=== PATIENT | male | born 1980 | race African-American/Black ===

== ENCOUNTER 2019-05-23 03:31 | Observation (INO) ==
[2019-05-23 04:11] LABS: Albumin Level 3.9 gm/dl (3.4-5.0); BUN Creatinine Ratio 12.6 (10-20); Calcium 8.5 mg/dl (8.5-10.1); Creatinine Clr Calc Pharmacy 114.5 ml/min; Est GFR (African American) 105.3; Est GFR (Non-African American) 90.9; Potassium 3.2 mmol/L (3.5-5.1)
[2019-05-23 04:14] LABS: Albumin Globulin Ratio 0.8 (0.9-2); Bilirubin,Total 0.2 mg/dl (0.2-1); Globulin 4.6 gm/dl (2.5-4.0); Total Protein 8.5 gm/dl (6.4-8.2)
--- NOTE | 2019-05-23 05:00 | Emergency Department Note ---
History of Present Illness General Chief complaint: Alcohol Intoxication Stated complaint: alcohol overdose Time Seen by Provider: 05/23/19 03:39 History of Present Illness This is a 38-year-old male presenting to the emergency department for altered mental status presumably from alcohol intoxication. The patient was brought to the attention of police by multiple passerby's. Was having a difficult time walking in [facility]. Police felt the patient was unwell and EMS was contacted. Evidently the patient recently completed his masters degree and was celebrating with friends. We are unsure how much alcohol the patient had to drink tonight, but reportedly did have at least one fall to the ground striking the right side of his head. History is otherwise limited secondary to the patient's status. Home Medications Home Medications Medication Instructions Recorded Confirmed Type Unobtainable 05/23/19 05/23/19 History Allergies Allergy/AdvReac Type Severity Reaction Status Date / Time Unable to Assess Allergy Unverified 05/23/19 05:17 Past Med/Surg History Medical History No chronic diseases present No significant past surgical history Social History Feels Safe at Home: Yes Smoking Status: Unknown if ever smoked Review of Systems Unobtainable due to cognitive status Physical Exam Vital Signs Vital Signs - 24 hr 05/23/19 03:26 05/23/19 03:40 05/23/19 03:48 Temperature 36.5 C Temperature Source Axillary Sepsis Recent Fever Within 48 Hours No Sepsis New/Unexplained Change in Mental Status No Sepsis Action Taken by Nursing No Action Required Oxygen Flow Rate - Titration 2 Pulse Oximetry Post Tiitration 98 Pulse Rate 81 Respiratory Rate 12 Blood Pressure 121/85 Blood Pressure Mean 97 Pulse Oximetry 89 L 90 98 Oxygen Delivery Method Room Air Nasal Cannula Room Air Nasal Cannula Oxygen Flow Rate 0 2 VITALS: Vitals are noted on the nurse's note and reviewed by myself. Vital signs stable. GENERAL: Grossly intoxicated male who is unable to answer questions HEAD: Superficial abrasion/contusion to the right side forehead and eyebrow without significant laceration or bleeding. EARS: External ear normal. External auditory canals clear, tympanic membranes pearly gaines without erythema or effusion bilaterally. No hemotympanum EYES: Pupils equal round and reactive to light and accommodation. Conjunctivae without injection, sclerae without icterus. Extraocular movements intact. No hyphema NOSE: Patent, turbinates without inflammation or discharge. MOUTH: Mucous membranes moist. Tonsils are not enlarged. Pharynx without erythema, blood, or exudate. NECK: Supple without nuchal rigidity. HEART: Regular rate and rhythm without murmurs gallops or rubs. LUNGS: Clear to auscultation bilaterally without wheezes, rales or rhonchi. No retractions or accessory muscle use. ABDOMEN: Positive normal bowel sounds x 4. MUSCULOSKELETAL: No muscle atrophy, erythema, or edema noted. NEURO: Patient was not alert or oriented. GCS 6: E(1) V(2) M(3). Patient does smell of alcohol but will arouse to painful stimuli. He is maintaining his own airway. Medical Decision Making Differential Diagnosis Differential diagnosis: Etiologies such as alcohol intoxication, trauma, intercranial bleed, toxicological, infection, hypoglycemia, electrolyte abnormalities, cardiac sources, intracerebral event, neurologic, as well as others were entertained. Laboratory Data Result diagrams: 05/23/19 03:40 Lab Results 05/23/19 05/23/19 Range/Units 03:40 03:40 Sodium 138 (136-145) mmol/L Potassium 3.2 L (3.5-5.1) mmol/L Chloride 104 (98-107) mmol/L Carbon Dioxide 24 (21-32) mmol/L Anion Gap 10.0 (3-11) BUN 13 (7-18) mg/dl Creatinine 1.05 (0.6-1.4) mg/dl Est Cr Clr Drug Dosing 114.5 ml/min Est GFR ( Amer) 105.3 Est GFR (Non-Af Amer) 90.9 BUN/Creatinine Ratio 12.6 (10-20) Glucose 113 H (70-99) mg/dl Calcium 8.5 (8.5-10.1) mg/dl Total Bilirubin 0.2 (0.2-1) mg/dl AST 71 H (15-37) U/L ALT 47 (12-78) U/L Alkaline Phosphatase 72 (45-117) U/L Total Protein 8.5 H (6.4-8.2) gm/dl Albumin 3.9 (3.4-5.0) gm/dl Globulin 4.6 H (2.5-4.0) gm/dl Albumin/Globulin Ratio 0.8 L (0.9-2) Ethyl Alcohol mg/dL 460.0 H (0-3) mg/dl Imaging Data Radiologist's Impression: Preliminary Findings Only See Final Report For Complete Findings CT HEAD: Impression: No intracranial hemorrhage or other acute intracranial abnormality. No mass lesion or mass effect. Ventricles appear normal. The calvarium and skull base appear normal. Mild mucosal thickening is seen in the paranasal sinuses. CT C SPINE: Impression: No fracture or traumatic malalignment the cervical spine. No significant spinal canal stenosis. MDM Narrative Physical exam and history were performed. Nursing notes, EMR, and Medication List were personally reviewed. Patient presents to the emergency department for evaluation of altered mental status and likely use. The patient does have outward signs of injury from a fall. Blood work was obtained and the patient was sent to CT scan for further evaluation of his symptoms. The patient's blood work is as above and was reviewed. He does not have a significant electrolyte imbalance but his alcohol is markedly elevated at 460. The patient CT scans were reviewed by myself and radiology as showing no acute process. He was reevaluated multiple times throughout the course of his stay. The patient continues to maintain his airway, but does need 2 L nasal cannula oxygen as he is snoring while sleeping. The patient continues to be obtunded and unable to answer questions. Due to the level of the alcohol and the patient's status I did discuss the case with the on-call hospitalist, Dr. Laurent, who agreed to evaluate the patient here in the department. Please see Dr. Laurent's dictation for further patient course, plan, and disposition. Of note I did speak with the patient's father, and the family lives in [facility]. They are aware that her son is here and will likely call back later today for a status update. The chart was completed utilizing [employer] Voice Recognition Software. Grammatical errors, random word insertions, pronoun errors, and incomplete sentences are an occasional consequence of this system due to software limitations, ambient noise, and hardware issues. Any formal questions or concerns about the content, text, or information contained within the body of this dictation should be directly addressed to the provider for clarification. . Impression & Plan Altered mental status, Alcohol use with intoxication, Closed head injury Critical Care Time I have personally spent greater than 30 minutes of critical care time in the direct management of this patient. This includes bedside care, interpretation of diagnostic studies, and testing, discussion with consultants, patient, and family members, and other required patient management activities. This 30 minutes is in excess of all separately billable procedures. Discharge Plan Visit Data *Final* Discharge Date/Time: 05/23/19 06:01 Chief Complaint: Alcohol Intoxication Stated Complaint: alcohol overdose ED Provider: Brit Escoto ED Midlevel Provider: Antonio Fried Discharge Problem: Altered mental status, Alcohol use with intoxication, Closed head injury Patient Disposition: Admitted As Inpatient Discharge Instructions Interventions: ED Discharge Assessment Last Done: 05/23/19 06:01 Discharge Problem: Altered mental status Qualifiers: Altered mental status type: unspecified Qualified Code(s): R41.82 - Altered mental status, unspecified Closed head injury Qualifiers: Encounter type: initial encounter Qualified Code(s): S09.90XA - Unspecified injury of head, initial encounter
--- NOTE | 2019-05-23 05:26 | History & Physical Report ---
Date of Service May 23, 2019 Assessment & Plan (1) Alcohol use with intoxication: Uncertain how much EtOH the patient consumed. EtOH gsqnu=697. Patient is unable to follow commands or answer questions at this time. He is protecting his airway, adequate oxygenation on 2L NC -Observation to medical floor with telemetry -Neuro checks q 4 hours -Continuous pulse oximetry Present on Admission?: Yes (2) Altered mental status: Secondary to EtOH intoxication. CT Head negative. -Observation to monitored bed -Neuro checks q 4 hours Present on Admission?: Yes (3) Closed head injury: Suspected fall - patient with small abrasion on forehead. CT head and c- spine negative -Neuro checks (4) Hypokalemia: K=3.l2 -KDur 40mEq when mental status improves F/E/N - Banana bag x 1, Kdur as above, NPO for now - may advance diet when mental status improvews Ppx - patient low risk for DVT Code - Full Dispo - Obs to med with tele History of Present Illness Chief Complaint: EtOH intoxication Primary Care Provider: NO PCP History obtained from the chart. Aleaxndrea Casey is a 38yo male with unknown past medical or surgical history presenting with acute EtOH intoxication. Patient was out with friends bryanna celebrating his recent Master's degree. Brought in with EtOH level of 460. On arrival patient afebrile hemodynamically stable. Saturating 89% on room air with notable snoring. He was placed on 2L NC with improvement in saturation. ER Course: O2 placed Allergies Allergy/AdvReac Type Severity Reaction Status Date / Time Unable to Assess Allergy Unverified 05/23/19 05:17 Home Medications Home Medications Medication Instructions Recorded Confirmed Type Unobtainable 05/23/19 05/23/19 History Past Med/Surg History Social History Feels Safe at Home: Yes Smoking Status: Unknown if ever smoked Review of Systems Review of Systems: Unobtainable due to reduced consciousness Physical Exam Physical Exam: General: patient sleeping in prone position, unable to answer questions or follow commands Skin: warm, dry, no rashes or lesions, small abrasion on right forehead, no hematoma/bleeding HEENT: PERRL, anicteric sclera, conjunctiva without injection, external ear normal to inspection, nares patent, moist mucus membranes, dentition intact, no oropharyngeal lesions, neck supple, trachea midline, no LAD, no thyromegaly, Heart: +S1/S2, regular, no m/r/g Lungs: equal air entry bilaterally, no rales/rhonchi/wheezes, +Snoring Abd: +BS, soft, NT/ND, no masses/organomegaly/ascites Ext: warm, 2+ pulses in UE/LE bilaterally, no clubbing/cyanosis or edema Neuro: patient with acute EtoH intoxication, unable to follow commands or answer questions Results & Data Vital Signs (Past 12 Hours) Vital Signs Temp Pulse Resp BP Pulse Ox 05/23/19 03:48 98 05/23/19 03:40 36.5 C 81 12 121/85 90 05/23/19 03:26 89 L Laboratory Results Lab Results 05/23/19 05/23/19 Range/Units 03:40 03:40 Sodium 138 (136-145) mmol/L Potassium 3.2 L (3.5-5.1) mmol/L Chloride 104 (98-107) mmol/L Carbon Dioxide 24 (21-32) mmol/L Anion Gap 10.0 (3-11) BUN 13 (7-18) mg/dl Creatinine 1.05 (0.6-1.4) mg/dl Est Cr Clr Drug Dosing 114.5 ml/min Est GFR ( Amer) 105.3 Est GFR (Non-Af Amer) 90.9 BUN/Creatinine Ratio 12.6 (10-20) Glucose 113 H (70-99) mg/dl Calcium 8.5 (8.5-10.1) mg/dl Total Bilirubin 0.2 (0.2-1) mg/dl AST 71 H (15-37) U/L ALT 47 (12-78) U/L Alkaline Phosphatase 72 (45-117) U/L Total Protein 8.5 H (6.4-8.2) gm/dl Albumin 3.9 (3.4-5.0) gm/dl Globulin 4.6 H (2.5-4.0) gm/dl Albumin/Globulin Ratio 0.8 L (0.9-2) Ethyl Alcohol mg/dL 460.0 H (0-3) mg/dl Diagnostic Findings CT Head: no intracranial hemorrhage or other acute intracranial abnormality. No mass lesion or mass effect. Ventricles appear normal. Calvarium and skull base appear normal. Mild mucosal thickening in the paranasal sinuses CT C-spine - no fracture or traumatic malalignment. No significant spinal canal stenosis Code Status & VTE Plan Code Status FULL (1) Altered mental status Altered mental status type: unspecified Qualified Code(s): R41.82 - Altered mental status, unspecified (2) Closed head injury Encounter type: initial encounter Qualified Code(s): S09.90XA - Unspecified injury of head, initial encounter
--- NOTE | 2019-05-23 06:41 | CT Scan Report ---
HEAD CT NONCONTRAST CT DOSE: HISTORY: etoh. head injury TECHNIQUE: Multiaxial CT images of the head were performed without the use of intravenous contrast. A utomated exposure control was utilized for this study. A dose lowering technique was utilized adheri ng to the principles of ALARA. Comparison: None. Findings: The paranasal sinuses and mastoid air cells are clear. The calvarium and skull base are int act. The ventricles and sulci are within normal limits. There is no mass, hematoma, midline shift, or acute infarct. Impression: No acute intracranial abnormality. Electronically signed by: Asif Hills M.D. 05/23/2019 6:40 AM
[2019-05-23] MEDS ORDERED: ONDANSETRON INJ 2 MG/ML 2 ML VIAL IV PRN (07:05)
[2019-05-23] MEDS ORDERED: POTASSIUM CHLORIDE 20 MEQ TABCR PO ONE (07:05)
--- NOTE | 2019-05-23 07:09 | CT Scan Report ---
CERVICAL SPINE CT CT DOSE: 1101.48 mGy.cm HISTORY: Head injury. etoh TECHNIQUE: Multiaxial CT images of the cervical spine were performed and reformatted in the sagittal and coronal plane without the use of contrast. A dose lowering technique was utilized adhering to th e principles of ALARA. COMPARISON: None. FINDINGS: No fractures. No subluxation. Prevertebral soft tissues and the C1-C2 interval are intact. No pneumothorax. IMPRESSION: No fractures within the cervical spine. Electronically signed by: Asif Hills M.D. 05/23/2019 7:08 AM
[2019-05-23] MEDS ORDERED: MULTI-VITAMIN INFUSION 10 ML, THIAMINE HCL 100 MG, FOLIC ACID 1 MG in SODIUM CHLORIDE 0... IV SCH (07:30)
[2019-05-23 08:12] LABS: Magnesium 2.4 mg/dl (1.8-2.4); Phosphorus 3.7 mg/dl (2.5-4.9)
--- NOTE | 2019-05-24 16:14 | Discharge Summary ---
Date of Service date of admission/date of discharge - May 23, 2019 Admission HPI Per Admitting Provider History obtained from the chart. Alexandrea Casey is a 38yo AA male with unknown past medical or surgical history presenting with acute EtOH intoxication. Patient was out with friends celebrating. Brought in with EtOH level of 460. On arrival patient afebrile and hemodynamically stable. Saturating 89% on room air with notable snoring. He was placed on 2L NC with improvement in saturation. Principal Diagnosis alcohol intoxication in setting of chronic alcohol abuse Discharge Exam Constitutional well developed, well nourished and + obese; no acute distress and no altered mental status ENMT external ear and nose normal, oropharynx normal Neck trachea midline, no thyromegaly Respiratory normal respiratory effort, lungs clear to auscultation Cardiovascular Rate/Rhythm: regular rate and regular rhythm Heart Sounds: normal S1 and normal S2; no murmur Vessels: posterior tibial pulses present and dorsalis pedis pulses present; no JVD Gastrointestinal (Abdomen) normal bowel sounds, soft, nontender, no hepatosplenomegaly Skin no rashes, warm and dry Trauma: no evidence of skin trauma (nothing obvious on forehead or scalp) Neurologic no focal motor deficits Motor/Sensory: no tremor Psychiatric A+Ox3, euthymic affect Discharge Data Allergies Allergy/AdvReac Type Severity Reaction Status Date / Time Unable to Assess Allergy Unverified 05/23/19 05:[address] cervical spine - no acute fractures. 2. CT head/brain - no fractures or ICH. Hospital Course (1) Alcohol use with intoxication: EtOH level was 460 upon ER presentation. Patient was altered due to the alcohol intoxication but was protecting his airway and had adequate oxygenation on 2L NC O2. He was admitted to the telemetry unit, received IV fluids and supportive care, and slept off his alcohol intoxication. NC O2 was quickly weaned off. By later in the day on hospital day #1 he was awake, alert, oriented x 3, had no complaints of headache/weakness/chest pain/abd pain, and was ambulating without difficulty. He admitted to very heavy alcohol use several days each week. He did not elaborate on quantities consumed. He denied that he had a problem with his drinking but did admit that this hospital stay was eye opening for him. He did acknowledge the seriousness of this event. Denied any history of DWI. 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 I counseled him on the dangers of alcohol abuse. I reviewed with him the latest recommendations on alcohol consumption in men (2 drinks or less/day, but probably safer to drink 1/day). Ultimately, however, I asked him to abstain completely from alcohol. His sister was present during our conversation and confirmed that he was minimizing his intake to us. Thus, he likely is suffering from chronic alcoholism. I asked him to follow-up with his PCP upon return to [place] to discuss alcohol cessation strategies. He was advised to not drink and drive. (2) Altered mental status: Secondary to EtOH intoxication. CT Head negative. Resolved with time and supportive care. (3) Closed head injury: Ruled out. There was concern at time of admission that he may have had a fall prior to admission but there were no signs of such on physical exam. Further he did not complaint of any headache, scalp injury, neck pain, etc. He did not recollect any fall or injury either. CT head and CT cervical spine were negative for acute findings. (4) Hypokalemia: Replaced here and was given prescription for 5 day course of K-dur at d ischarge. (5) Alcohol abuse: see above in "alcohol use with intoxication" (6) Elevated AST (SGOT): 2nd to alcohol abuse/binging. mildly elevated on day of presentation. Total Time Total Time Spent Total Time Spent (In Minutes): 30 Total Time Includes: Examination of the Patient, Discharge Planning and Medication Reconciliation Discharge Plan Discharge Items Patient Disposition: Home - Self-Care Reason For Visit: ALCOHOL INTOXICATION Discharge Diagnosis: 1. ALCOHOL INTOXICATION - RESOLVED. BLOOD ALCOHOL LEVEL OF 460 AT TIME OF ADMISSION. 2. LOW POTASSIUM - DUE TO EXCESSIVE DRINKING. Discharge Goals: Diagnostic testing and Therapeutic intervention Activity: As commented below Activity Comment: TAKE IT EASY TODAY; PLEASE DO NOT CONSUME ALCOHOL. Exercise/Sports: Gradually increase as tolerated Non-emergency contact: Primary Care Provider Call non-emergency contact if: you have any medication questions Follow-up/Referrals: PCP,NO [Primary Care Provider] - Diet: Regular Addtl Provider Instructions: From Bishop Youssef, hospitalist - You were admitted to [facility] for alcohol intoxication. Your blood alcohol level was 460. This would correspond to "blowing greater than 0.4" on a breathalyzer for a police radio dispatcher. At levels greater than 400 people become unresponsive/comatose, can go into shock, etc. This was a very serious event. Many people from complications related to alcohol levels this high. Upon return to [place] please speak to your family doctor about ways to remain sober and abstain from alcohol. NEVER DRINK AND DRIVE A VEHICLE. Please take a potassium supplement daily for 5 days. Your potassium level was mildly low due to recent alcohol ingestion. Lastly, your CAT scans of the head and neck were NORMAL. Follow-up -- see your family doctor upon return to [place]. Return to [facility] if -- * you have fevers over 100.5 degrees * you have severe abdominal pain or vomiting * you are short of breath * you have severe headache * any other concerns Prescriptions: New potassium chloride 20 mEq tablet extended release 20 meq PO DAILY 5 Days Qty: 5 RF: 0 No Action Unobtainable RF: 0 Stand-Alone Forms: My [facility] [employer]/Other Patient Handouts: Alcoholism, ED Intoxication Alcohol, ED Alcohol Abuse Discharge Orders: Discharge Order (Routine); Ordered 05/23/19 Ordered By: Bishop Youssef Admission Data Admit Date/Time: 05/23/19 05:05 Attending Provider: Bishop Youssef Admit Provider: Bre Laurent Primary Care Provider: PCP,NO Other Providers: Bre Laurent Service: Telemetry Medical Other Interventions: Discharge Summary Assessment (RN) Last Done: 05/23/19 13:28 Pending Studies at Discharge: No DC Date/Time DO NOT enter until pt leaves facility: 05/23/19 14:04
== END 2019-05-23 14:04 | disposition home or self-care (01) ==
LOC: 2N 03:31 → ED 03:31 → SUATTDRO 05:05 → 2N 06:01